=== PATIENT | female | born 1980 | race Two or more races ===

== ENCOUNTER 2021-10-19 07:49 | Inpatient (IN) | payer MEDICAID ==
[~2021-10-19] VITALS: Ht 154.9 cm; Wt 75.5 kg
[2021-10-19] VITALS (14 sets, daily range): BP systolic 99–132; BP diastolic 59–79
[2021-10-19] MEDS ORDERED: morphine 4 MG/ML inj SYRINge IV ONE (08:20)
[2021-10-19] MEDS ORDERED: ondansetron/PF 4mg/2ml inj IV ONE (08:20)
[2021-10-19] MEDS ORDERED: ondansetron/PF 4mg/2ml inj IV PRN ×2 (08:35→15:35)
[2021-10-19] MEDS ORDERED: HYDROcodone/acetaminophen 10/325mg tab PO PRN (08:35)
[2021-10-19] MEDS ORDERED: magnesium 2GM in 50ml NS 50 ML IV PRN (08:35)
[2021-10-19] MEDS ORDERED: ondansetron 4mg rapidly disintigrating tab PO PRN (08:35)
[2021-10-19] MEDS ORDERED: acetaminophen 650mg rectal suppository RC PRN (08:35)
[2021-10-19] MEDS ORDERED: potassium Cl 20 mEq SR tablet PO PRN ×2 (08:35)
[2021-10-19] MEDS ORDERED: HYDROmorphone inj. 0.5 MG/0.5 ML DISP.SYRIN IV PRN (08:35)
[2021-10-19] MEDS ORDERED: bisacodyl 10mg suppository rectal RC PRN (08:35)
[2021-10-19] MEDS ORDERED: acetaminophen 325mg tablet PO PRN ×2 (08:35)
[2021-10-19] MEDS ORDERED: magnesium 4gm in 100ml NS 100 ML IV PRN (08:35)
[2021-10-19] MEDS ORDERED: magnesium hydroxide 30ml (MOM) UD suspension PO PRN (08:35)
[2021-10-19] MEDS ORDERED: HYDROcodone/acetaminophen 5mg/325mg tablet PO PRN (08:35)
[2021-10-19] MEDS ORDERED: magnesium Cl slow-release 64mg tablet PO PRN (08:35)
[2021-10-19] MEDS ORDERED: HYDROmorphone/PF 0.2 MG/ML SYRINGE IV PRN (08:35)
[2021-10-19] MEDS ORDERED: potassium CL 10mEq/100ml bag 100 ML IV PRN (08:35)
[2021-10-19] MEDS ORDERED: metoclopramide 5 mg/ml inj IV PRN (08:35)
[2021-10-19] MEDS ORDERED: mag hydrox/Alum hydrox/simeth 30ml oral suspension PO PRN (08:35)
[2021-10-19] MEDS: normal saline 1000ml 1,000 ML IV SCH ×2 (09:25→13:08)
[2021-10-19 09:35] LABS: BASOPHILS % (AUTO) 0.3 % (0-1); EOSINOPHILS # (AUTO) 0.3 X10'3 (0-0.9); EOSINOPHILS % (AUTO) 4.7 % (0-6); HEMATOCRIT 38.1 % (35.0-45.0); HEMOGLOBIN 12.7 g/dl (12.0-16.0); LYMPHOCYTES # (AUTO) 1.4 X10'3 (1.1-4.8); LYMPHOCYTES % (AUTO) 20.7 % (21-51); MEAN CORPUSCULAR HEMOGLOBIN 28.4 PG (27.0-31.0); MEAN CORPUSCULAR HGB CONC 33.3 g/dL (33.0-36.5); MEAN CORPUSCULAR VOLUME 85.2 FL (78-98); MEAN PLATELET VOLUME 8.3 FL (7.4-10.4); MONOCYTES # (AUTO) 0.6 X10'3 (0-0.9); MONOCYTES % (AUTO) 8.6 % (2-12); NEUTROPHILS # (AUTO) 4.4 X10'3 (1.8-7.7); NEUTROPHILS % (AUTO) 65.7 % (42-75); PLATELET COUNT 255 X10'3 (140-440); RED BLOOD COUNT 4.47 X10'6 (4.20-5.60); RED CELL DISTRIBUTION WIDTH 13.3 % (11.5-14.5); WHITE BLOOD COUNT 6.7 X10'3 (4.5-11.0)
[2021-10-19 09:36] LABS: CLARITY,URINE CLEAR (Clear); GLUCOSE, URINE NEGATIVE (Neg); KETONES,URINE NEGATIVE (Neg); LEUKOCYTE ESTERASE ,URINE NEGATIVE (Neg); NITRITES, URINE NEGATIVE (Neg); OCCULT BLOOD,URINE NEGATIVE (Neg); PROTEIN,URINE NEGATIVE (Neg); UROBILINOGEN,URINE 0.2 E.U/dL (0.2-1.0)
[2021-10-19 09:40] LABS: COLOR,URINE DARK YELLOW (Yellow); UA COLLECTION TYPE CLN CATCH MIDSTREAM
[2021-10-19 09:42] LABS: APTT 27 SECONDS (22-32)
[2021-10-19 09:46] LABS: ALANINE AMINOTRANSFERASE 23 U/L (12-78); ALBUMIN 3.4 G/DL (3.4-5.0); ANION GAP 10 (8-16); ASPARTATE AMINO TRANSFERASE 16 U/L (10-37); BILIRUBIN,TOTAL 0.6 MG/DL (0.1-1.0); BLOOD UREA NITROGEN 11 MG/DL (7-18); BUN/CREATININE RATIO 15.7 (6.6-38.0); CALCIUM 8.7 MG/DL (8.5-10.1); CHLORIDE 106 MMOL/L (99-107); GLUCOSE 86 MG/DL (70-104); LIPASE < 50 U/L (73-393); MAGNESIUM 2.3 MG/DL (1.5-2.4); SODIUM 138 MMOL/L (135-145); TOTAL CARBON DIOXIDE 22.3 MMOL/L (24-32); TOTAL PROTEIN 6.9 G/DL (6.4-8.2); eGFR > 90 ML/MIN
--- NOTE | 2021-10-19 10:25 | NUR ---
Per lab pt's blood is positive for antibodies.
--- NOTE | 2021-10-19 12:35 | NUR ---
Patient in room JR 345. I have received report from Gretel DRIVER ED traveler and had the opportunity to ask questions and assume patient care.
--- NOTE | 2021-10-19 12:56 | NUR ---
Covering for Primary RN on lunch. Received patient to room 345B via chair accompanied by x1 staff and patient's visitor. Patient alert and oriented and in no apparent acute distress. Patient denies pain or discomfort at this time. Oriented patient to room and call light. Bed in low and locked position.
[2021-10-19] MEDS ORDERED: URSO300C2 PO (13:43)
--- NOTE | 2021-10-19 14:50 | NUR ---
Patient in room JR 345. I have received report from Christopher GarciaSulfide Head Operator and had the opportunity to ask questions and assume patient care.
[2021-10-19] MEDS ORDERED: dextrose 50%-water 50ml dispensing syringe IV ONE (14:55)
[2021-10-19] MEDS ORDERED: BUPIVAcaine 0.5% inj/PF 30 ML ONE (15:17)
[2021-10-19 15:35] LABS: PREOP URINE HCG NEGATIVE (NEGATIVE)
[2021-10-19] MEDS ORDERED: morphine 4 MG/ML inj SYRINge IV PRN (15:35)
[2021-10-19] MEDS ORDERED: labetalol 20mg/4ml (5mg/ml) syringe IV PRN (15:35)
[2021-10-19] MEDS ORDERED: proCHLORperazine 10 MG/2 ml inj IV PRN (15:35)
[2021-10-19] MEDS ORDERED: acetaminophen 1,000mg/100ml IV 100 ML IV PRN (15:35)
[2021-10-19] MEDS ORDERED: ringers solution, lacted 1,000 ML IV SCH (15:35)
[2021-10-19] MEDS ORDERED: morphine 2 MG/ML inj. syringe IV PRN (15:35)
[2021-10-19] MEDS ORDERED: hydrALAZINE 20mg/ml inj. IV PRN (15:35)
[2021-10-19] MEDS ORDERED: meperidine/PF 25mg/ml syringe IV PRN ×3 (15:35)
[2021-10-19] MEDS ORDERED: sevoflurane 250ml liquid IH ONE (15:41)
--- NOTE | 2021-10-19 15:44 | NUR ---
miller Spencer regarding pt's DC orders. Pt states she is homeless, spoke to Sister Lizy and she says she cannot take her back. lula Spencer and Dr Garvin aware. Addendum: 10/20/21 at 1302 by Gaviota Velazquez RN wrong pt
[2021-10-19] MEDS ORDERED: midazolam 1 mg/ML 2ml injection ONE (15:48)
[2021-10-19] MEDS ORDERED: fentaNYL /PF 50mcg/ml 5ml ampule ONE (15:51)
[2021-10-19] MEDS ORDERED: propofol inj 20 ML IV ONE (15:59)
[2021-10-19] MEDS ORDERED: rocuronium 10mg/ml inj IV ONE (15:59)
[2021-10-19] MEDS ORDERED: ceFOXitin 1000 MG inj ONE ×2 (15:59)
[2021-10-19] MEDS ORDERED: LIDOcaine 2% (20mg/ml) 5ml vial ONE (15:59)
[2021-10-19] MEDS ORDERED: ondansetron/PF 4mg/2ml inj ONE (16:25)
[2021-10-19] MEDS ORDERED: dexamethasone sod phosphate 4mg/ml inj. ONE (16:25)
[2021-10-19] MEDS ORDERED: glycopyrrolate 0.2mg/ml inj ONE (16:35)
[2021-10-19] MEDS ORDERED: neostigmine methylsulfate 1 MG/ML 10ml vial ONE (16:35)
--- NOTE | 2021-10-19 16:55 | NUR ---
Received from OR via SURGICAL BED , accompanied by Anesthesiologist RACQUEL and report given by Anesthesiolgist. 10 LPM SIMPLE MASK, 20G IV L HAND WITH LR @ 100ML/HR, STATES 06/12 PAIN TO THE ABDOMEN, WILL MEDICATE AND EVALUATE FOR PAIN. Addendum: 10/19/21 at 1705 by Valentin Calderon RN, RN Amended: Links added.
[2021-10-19] MEDS ORDERED: HYDROcodone/acetaminophen 10/325mg tab PO ONE (17:50)
--- NOTE | 2021-10-19 18:24 | NUR ---
Problems reprioritized. Patient report given, questions answered & plan of care reviewed with Jeimy DRIVER Traveler.
--- NOTE | 2021-10-19 18:37 | NUR ---
ALL DISCHARGE CRITERIA HAS BEEN MET. VSS, PAIN AT A TOLERABLE LEVEL, ABLE TO SAFELY AMBULATE AND TRANSFER SELF. IV TAKEN OUT WITHOUT ANY COMPLICATIONS. ALL DISCHARGE INSTRUCTIONS COVERED WITH PATIENT AND ALL QUESTIONS ANSWERED. PATIENT TAKEN OUT VIA WHEELCHAIR TO PERSONAL VEHICLE WHERE FAMILY/FRIEND DROVE PATIENT HOME. DAUGHTER GIVEN ALL DISCHARGE INSTRUCTIONS WELL. Addendum: 10/19/21 at 2022 by Valentin Calderon RN, RN Amended: Links added.
[2021-10-19] MEDS ORDERED: K and/or MAG REPLACEMENT MC SCH (20:00)
[2021-10-19] MEDS ORDERED: temazepam 15mg capsule PO PRN (21:00)
== END 2021-10-19 19:15 | disposition home or self-care (01) | DRG 263 ==
LOC: ER 07:50 → ED HOLD 08:35 → SUR 3N 12:50
PROVIDERS: ADMIT Family Medicine; ATTEND Family Medicine
PROC: 0FT44ZZ Resection of Gallbladder, Percutaneous Endoscopic Approach (ICD-10-PCS; principal; 2021-10-19 15:41)
DX: K81.9 Cholecystitis, unspecified (principal); E66.9 Obesity, unspecified; Z68.31 Body mass index [BMI] 31.0-31.9, adult
CPT/HCPCS: 36415; 71045; 80053; 81003; 81025; 82948; 83690; 83735; 85025; 85610; 85730; 86885; 86900; 86901; 87081; 87635; 93005; 99285; A4215; A4618; A7000; G0378; J0694; J1100; J2175; J2250; J2270; J2405; J2704; J2710; J3010; J3490; J7030; J7120; S0020